=== PATIENT | female | born 1965 | race Caucasian/White ===

== ENCOUNTER → 2018-12-19 | Outpatient (CLI) | payer OTHER ==
[2018-12-19 11:33] LABS: BASOPHIL % 0.5 % (0-2); PLATELET COUNT 282 x10^3mcL (130-400); RED CELL DISTRIBUTION WIDTH 13.5 % (11.5-14.5)
[2018-12-19 11:54] LABS: ALBUMIN 3.8 g/dL (3.4-5.0); ALKALINE PHOSPHATASE 76 U/L (46-116); ALT/SGPT 21 U/L (14-59); AST/SGOT 16 U/L (15-37); BILIRUBIN DIRECT 0.09 mg/dL (0.0-0.2); BILIRUBIN TOTAL 0.44 mg/dL (0.20-1.00); CALCIUM 9.1 mg/dL (8.5-10.1); CARBON DIOXIDE 27.1 mmol/L (21-32); CHLORIDE SERUM 105 mmol/L (98-107); GFR1 > 60 mL/min; GLUCOSE SERUM 89 mg/dL (74-106); POTASSIUM SERUM 4.3 mmol/L (3.5-5.1); SODIUM SERUM 142 mmol/L (136-145); TOTAL PROTEIN, SERUM 8.1 g/dL (6.4-8.2); TRIGLYCERIDES 48 mg/dL (<150)
[2018-12-19 11:56] LABS: CHOLESTEROL 240 mg/dL (<200); CHOLESTEROL/HDL RATIO 3.2; HDL CHOLESTEROL 74 mg/dL (40-60)
== END | disposition home or self-care (01) ==
LOC: LB 09:57
PROVIDERS: Internal Medicine
DX: Z00.00 Encounter for general adult medical examination without abnormal findings (principal)
CPT/HCPCS: 77067

== ENCOUNTER → 2019-01-26 | Outpatient (CLI) | payer OTHER | END | disposition home or self-care (01) | LOC: RD 14:59 | DX: M16.0 Bilateral primary osteoarthritis of hip (principal) ==

== ENCOUNTER → 2019-03-06 | Outpatient (CLI) | payer OTHER ==
[~2019-03-06] MED LIST: ADV100/50; ALBUTEROL0.63 MG/3; HYDROXYZINE10 M1 PO; PROTONIX40 MG PO; ZYRTEC10 MG PO
== END | disposition home or self-care (01) ==
LOC: MI 03-05 12:30
PROC: BQ31ZZZ Magnetic Resonance Imaging (MRI) of Left Hip (ICD-10-PCS; principal; 2019-03-06)
DX: M25.552 Pain in left hip (principal); M16.12 Unilateral primary osteoarthritis, left hip

== ENCOUNTER 2019-03-30 11:50 | Emergency (ER) | payer OTHER ==
[~2019-03-30] VITALS: Ht 177.8 cm; Wt 104.3 kg
[2019-03-30 11:52] VITALS: BP 135/89; Ht 177.8 cm; Wt 104.3 kg
== END 2019-03-30 12:23 | disposition home or self-care (01) ==
LOC: ED 11:50
DX: L50.9 Urticaria, unspecified (principal); J45.909 Unspecified asthma, uncomplicated; K21.9 Gastro-esophageal reflux disease without esophagitis
CPT/HCPCS: J2930

== ENCOUNTER 2019-04-11 09:32 | Emergency (ER) | payer OTHER ==
[~2019-04-11] VITALS: Ht 177.8 cm; Wt 121.6 kg
[2019-04-11 09:36] VITALS: Ht 177.8 cm; Wt 121.6 kg
[2019-04-11 11:59] VITALS: BP 148/90
== END 2019-04-11 11:59 | disposition home or self-care (01) ==
LOC: ED 09:32
DX: T78.3XXA Angioneurotic edema, initial encounter (principal); J45.909 Unspecified asthma, uncomplicated; Y92.89 Other specified places as the place of occurrence of the external cause
CPT/HCPCS: J7512

== ENCOUNTER → 2019-05-18 | Outpatient (CLI) | payer OTHER ==
[2019-05-18 17:03] LABS: microscopic required? NO
[2019-05-18 17:18] LABS: BASOPHIL % 0.8 % (0-2); PLATELET COUNT 322 x10^3mcL (130-400); RED CELL DISTRIBUTION WIDTH 13.9 % (11.5-14.5)
[2019-05-18 17:26] LABS: UA SPECIFIC GRAVITY <=1.005 (1.005-1.035); urine erythrocyte NEGATIVE (NEGATIVE)
[2019-05-18 17:30] LABS: ALBUMIN 3.8 g/dL (3.4-5.0); ALKALINE PHOSPHATASE 68 U/L (46-116); ALT/SGPT 26 U/L (14-59); AST/SGOT 17 U/L (15-37); BILIRUBIN TOTAL 0.3 mg/dL (0.20-1.00); CALCIUM 9.3 mg/dL (8.5-10.1); CARBON DIOXIDE 29.5 mmol/L (21-32); CHLORIDE SERUM 105 mmol/L (98-107); CREATININE SERUM 0.9 mg/dL (0.6-1.0); GFR1 > 60 mL/min; GLUCOSE SERUM 94 mg/dL (74-106); POTASSIUM SERUM 3.7 mmol/L (3.5-5.1); SODIUM SERUM 143 mmol/L (136-145); T4(THYROXINE) 8.5 ug/dL (4.7-13.3); TOTAL PROTEIN, SERUM 7.5 g/dL (6.4-8.2)
[2019-05-18 18:37] LABS: ERYTHROCYTE SED RATE 40 mm/hr (0-30)
[2019-05-20 09:10] LABS: RHEUMATOID ARTHRITIS FACTOR 13.2 IU/mL (0.0-13.9)
== END | disposition home or self-care (01) ==
LOC: LB 16:17
PROVIDERS: Internal Medicine
DX: Z00.00 Encounter for general adult medical examination without abnormal findings (principal)
CPT/HCPCS: 86431

== ENCOUNTER → 2019-07-19 | Outpatient (CLI) | payer OTHER | END | disposition home or self-care (01) | LOC: LB 15:03 | DX: T78.3XXD Angioneurotic edema, subsequent encounter (principal); I10 Essential (primary) hypertension; L50.1 Idiopathic urticaria | CPT/HCPCS: 86376; 86431 ==

== ENCOUNTER → 2019-07-25 | Outpatient (CLI) | payer OTHER | END | disposition home or self-care (01) | LOC: LB 14:23 | DX: T78.3XXD Angioneurotic edema, subsequent encounter (principal); L50.1 Idiopathic urticaria ==

== ENCOUNTER → 2019-07-26 | Outpatient (CLI) | payer OTHER | END | disposition home or self-care (01) | LOC: RD 16:23 | DX: N39.0 Urinary tract infection, site not specified (principal); R05 Cough ==

== ENCOUNTER 2019-08-14 12:23 | Inpatient (IN) | payer OTHER ==
[~2019-08-14] VITALS: Ht 177.8 cm; Wt 104.3 kg
[2019-08-14 12:25] VITALS: Ht 177.8 cm; Wt 104.3 kg
--- NOTE | 2019-08-14 12:30 | NUR ---
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
--- NOTE | 2019-08-14 12:34 | NUR ---
PT STS NO CHANCE OF BEING , PT PROVIDING VERBAL CONSENT D/T "TOO MUCH PAIN TO WALK OR SIT FOR TOO LONG" AND UNDERSTANDS RISKS OF +HCG AND TORADOL ADMIN.
--- NOTE | 2019-08-14 13:04 | NUR ---
MD CELAYA AT BEDSIDE DISCUSSING PLAN OF CARE
--- NOTE | 2019-08-14 13:46 | NUR ---
PT MEDICATED BY SHEA RN, PT DENIES PAIN AT THIS TIME, PT NOTED TO BE SMILING IN POSITION OF COMFORT STATING ''I FEEL A LOT BETTER''
--- NOTE | 2019-08-14 13:47 | NUR ---
PT NSR ON CM, RESPS E/U, VSS, SKIN PINK DRY AND WARM, PT RESTING IN POSITION OF COMFORT, WILL CONTINUE TO MONITOR
--- NOTE | 2019-08-14 14:30 | NUR ---
PT STS HAS RIDE HOME FROM HER FRIEND VIA PRIVATE AUTO
--- NOTE | 2019-08-14 14:41 | NUR ---
PT MEDICATED PER EMAR AND MD ORDER, RESPS E/U, NSR ON CM, VSS
--- NOTE | 2019-08-14 15:46 | NUR ---
FACIAL GRIMACING NOTED WHEN PT ATTEMPTED TO GET OUT OF BED
--- NOTE | 2019-08-14 15:47 | NUR ---
PT STS "HURTS TOO MUCH TO WALK AND GET UP I CAN BARELY MOVE" MD CELAYA MADE AWARE
--- NOTE | 2019-08-14 15:49 | NUR ---
FRIEND AT BEDSIDE
[2019-08-14] MEDS ORDERED: ALBUTEROL0.63 MG/3 (16:02)
[2019-08-14] MEDS ORDERED: ZYRTEC10 MG PO (16:02)
[2019-08-14] MEDS ORDERED: HYDROXYZINE10 M1 PO (16:03)
[2019-08-14] MEDS ORDERED: ADV100/50 (16:03)
[2019-08-14] MEDS ORDERED: PROTONIX40 MG PO (16:04)
--- NOTE | 2019-08-14 16:05 | NUR ---
PT WHEELCHAIRED TO RESTROOM WITH ASSISTANCE FROM JESSICA ROJAS
[2019-08-14 16:08] LABS: BASOPHIL % 1.1 % (0-2); PLATELET COUNT 298 x10^3mcL (130-400); RED CELL DISTRIBUTION WIDTH 13.4 % (11.5-14.5)
--- NOTE | 2019-08-14 16:09 | NUR ---
PT BACK FROM RESTROOM VIA WHEELCHAIR IN STABLE CONDIITON, VSS, NSR ON CM, IN NAD AT THIS TIME RESTING IN POSITION OF COMFORT
[2019-08-14 16:14] LABS: CALCIUM 8.8 mg/dL (8.5-10.1); CARBON DIOXIDE 24.7 mmol/L (21-32); CHLORIDE SERUM 106 mmol/L (98-107); GFR1 > 60 mL/min; GLUCOSE SERUM 90 mg/dL (74-106); POTASSIUM SERUM 4.2 mmol/L (3.5-5.1); SODIUM SERUM 140 mmol/L (136-145)
--- NOTE | 2019-08-14 16:30 | NUR ---
PT STS 10/10 PAIN "PAIN WITH MOVEMENT I FEEL SPASMS" MD CELAYA MADE AWARE
--- NOTE | 2019-08-14 16:54 | NUR ---
PT MEDICATED PER MD ORDER AND EMAR, RESPS E/U, VSS, NSR ON CM, FRIEND AT BEDSIDE
--- NOTE | 2019-08-14 17:05 | NUR ---
REPORT GIVEN TO JEREMIE ROJAS WHO IS TO RESUME CARE OF PT
--- NOTE | 2019-08-14 17:22 | NUR ---
RECEIVED PT VIA GURNEY FROM E/D, ACCOMPANIED BY TRANSPORTER. PT A/A/O X 4, CALM, COOPERATIVE; WEARS GLASSES (W/ PT). DENIES CHEST PAIN OR DISCOMFORT AT THIS TIME. SCD BY BEDSIDE. NO ACUTE RESPIRATORY DISTRESS NOTED. UNABLE TO AMBULATE 2/2 LOWER BACK PAIN (CURRENTLY 4/10 INTERMITTENT SHARP PAIN, EXACERBATED BY MOVEMENT AND WALKING (RISES TO 8/10), RELIEVED BY PAIN MEDICATION AND REST), FALL RISK PROTOCOL IN PLACE. IV SITE RH 20G, CDI. ORIENTED PT TO ROOM, BED CONTROLS, CALL LIGHT SYSTEM. SIDE RAILS UP X 2, BED IN LOW POSITION. WILL ENDORSE TO BOB CHAO.
[2019-08-14 17:56] VITALS: BP 120/69
--- NOTE | 2019-08-14 18:30 | NUR ---
PATIENT C/O 8/10 BACK PAIN AT THIS TIME. PATIENT MEDICATED WITH MORPHINE IVP PRN AT THIS TIME. NO APPARENT ADVERSE EFFECTS NOTED. ALL NEEDS ATTENDED TO. WILL CONTINUE TO MONITOR
--- NOTE | 2019-08-14 18:49 | NUR ---
PATIENT RESTING COMFORTABLY IN BED AT THIS TIME. NO APPARENT DISTRESS OR DISCOMFORT NOTED. IV PATENT AND INTACT TO RIGHT HAND. ALL QUESTIONS AND CONCERNS ADDRESSED. ALL NEEDS ATTENDED TO. SAFETY PRECAUTIONS MAINTAINED. WILL ENDORSE ALL CARE TO SOFTWARE SYSTEMS ARCHITECT NURSE
--- NOTE | 2019-08-14 19:30 | NUR ---
RECEIVED PT IN BED RESTING QUIETLY. SHE IS ALERT,ORIENTED X4. NO SOB ON ROOM AIR. PT STATED BACK PAIN IS AT 5/10 AND TOLERABLE AT THIS TIME. ALSO SAID SHE FEELS OKAY IF SHE DOES NOT MOVE. PER PT, PAIN RADIATES TO HER LT LEG. PT ADVISED TO CALL FOR ASSISTANCE WHEN GETTING OOB. W/ HL TO RT HAND. CALL LIGHT W/IN REACH.
--- NOTE | 2019-08-14 22:28 | NUR ---
PT C/O BACK PAIN 05/16. MORPHINE SULFATE 1 MG IV GIVEN.
[2019-08-14 22:30] VITALS: BP 135/94
--- NOTE | 2019-08-15 04:54 | NUR ---
PT C/O BACK PAIN 05/16. MORPHINE SULFATE 1 MG IV GIVEN.
--- NOTE | 2019-08-15 05:37 | NUR ---
PT SLEPT THROUGH THE NIGHT. SHE WAS MEDICATED FOR PAIN X2 W/ MOD RELIEF. PT WAS ABLE TO AMBULATE TO THE RESTROOM USING A WALKER. ALL NEEDS ATTENDED TO.
[2019-08-15 06:17] VITALS: BP 118/68
--- NOTE | 2019-08-15 07:25 | NUR ---
RECEIVED PATIENT AWAKE/ALERT IN BED NO DISTRESS NOTED, REPORT STILL UNABLE TO MOVE LOWER EXTREMITIES, DENIES NUMBNESS. IV TO RH INTACT AND SL NOTED. POC EXPLAINED AND PAIN MANAGE, CALL LIGHT WITHIN REACH.
--- NOTE | 2019-08-15 08:57 | NUR ---
PATIENT RESTING IN BED ADMINISTERED FLEXERIL 10MG PO AND TOLERATED. ASSISTING PATIENT TO BATHROOM WALKING SLOW BUT TOLERATED. PAIN MOSTLY ON THE LT GROIN RADIATED DOWN TO LEG. ASSIST BACK TO BED, CALL LIGHT WITHIN REACH.
[2019-08-15 10:00] VITALS: BP 115/75
--- NOTE | 2019-08-15 11:24 | NUR ---
PATIENT C/O PAIN AFTER WORKING WITH PT, NORCO 1TAB PO GIVEN FOR 8/10 LOWER BACK PAIN. NEEDS MET. CALL LIGHT WITHIN REACH.
--- NOTE | 2019-08-15 12:19 | NUR ---
PATIENT RESTING IN BED STATED PAIN IS A LITTLE BETTER, 02/14. PATIENT SAID DR. MCKINNON CAME TO SEE AND SUGGEST MRI LUMBAR. NEED MET. CALL LIGHT WITHIN REACH.
--- NOTE | 2019-08-15 12:57 | NUR ---
PATIENT RESTING IN BED PAIN IS 5/10, SCHEDULE FLEXERIL PO GIVEN. NEEDS MET. PATIENT DID NOT KNOW DR. MCKINNON ORDER CONSENT FOR LT HIP SURGERY, PATIENT FEEL IS NOT APPROPRIATE AT THIS TIME. WILL CALL DR. MCKINNON TO TALK TO PATIENT. CALL LIGHT WITHIN REACH.
--- NOTE | 2019-08-15 13:09 | NUR ---
CHAD PAULINO CALL DR. MCKINNON AND CLARIFIED, ORDERS IS NOT FOR THIS TIME. PER DR. MCKINNON CANCEL ORDERS.
--- NOTE | 2019-08-15 14:23 | NUR ---
CALL DR. MCKINNON CLARIFIED MEDROL 4MG PO AND HEPARIN 5000 UNITS SQ IS ORDER FOR THIS PATIENT.
--- NOTE | 2019-08-15 14:42 | NUR ---
MEDROL 4MG PO ADMINISTERED ORDERED, PATIENT RESTING IN BED COMFORTABLY. NO COMPLAIN. CONT TO MONITOR.
[2019-08-15 16:21] VITALS: BP 121/78
--- NOTE | 2019-08-15 16:30 | NUR ---
CALLED AND SPOKE TO AND VERIFIED WITH HIM OF HIS RECOMMENDATION OF MRI LSPINE WITHOUT CONTRAST, SAYS RELAY IT TO (ATTENDING) AND IF OKAY TO ORDER THE MRI LSPINE TO R/O DISC HERNIATION. CALLED AND SPOKE TO AND MADE HIM AWARE OF ABOVE. CALLED AND SPOKE TO LYNNETTE(PHOTOGRAPHIC EQUIPMENT TECHNICIAN) TO GET ADMINISTRATIVE APPROVAL FOR MRI LSPINE WITHOUT CONTRAST, LYNNETTE SAYS WILL NOTIFY ME ONCE APPROVED. ONEIDA ROJAS ASSIGNED TO THIS PT MADE AWARE OF ABOVE.
--- NOTE | 2019-08-15 16:47 | NUR ---
RECEIVED A CALL FROM LYNNETTE(BUILDING DISMANTLER) AND SAYS THAT MRI ADMINISTRATIVE APPROVAL WAS OBTAINED AND APPROVED BY . CALLED AND SPOKE TO AND UPDATED HIM THAT MRI LSPINE APPROVED. RECEIVED A NEW ORDER TO CANCEL XRAY OF LSPINE ORDERED FOR TOMORROW. ONEIDA ROJAS ASSIGNED TO THIS PT MADE AWARE OF ABOVE. PT WAS UPDATED OF ABOVE PLAN.
--- NOTE | 2019-08-15 17:02 | NUR ---
MEDICATED FOR PAIN 8/10 LOWER BACK WITH NORCO 1 TAB PO AND FLEXERIL 10MG PO. MRI QUESTIONAIRE COMPLETED. NEEDS MET. PATIENT RESTING IN BED WITH VISITOR AT BEDSIDE. CONT TO MONITOR.
--- NOTE | 2019-08-15 17:21 | NUR ---
PER GERMAN INFORM NURSE TECH WILL BE AVAILABLE FOR MRI TOMORROW AT 10 AM. CHAD KAUFFMAN.
--- NOTE | 2019-08-15 17:57 | NUR ---
PATIENT SAT UP IN BED REPORT PAIN IS RELIEVED, 0/10 AND WAS MADE AWARE MRI L SPINE SCHEDULE TOMORROW AROUND 10:00 AM. NEEDS MET. CALL LIGHT WITHIN REACH.
--- NOTE | 2019-08-15 19:40 | NUR ---
RECEIVED REPORT FROM BOB MOHAMUD. AAOX4. PT DENIES ANY HEADACHE OR DIZZINESS AT THIS TIME. PT IS MED-SURG. PT DENIES ANY S/S OF CHEST PAIN OR DISCOMFORT AT THIS TIME. PULSES ARE PALPABLE AND CAP REFILL IS <3. PT IS ON HEPARIN SQ. PT LUNGS CTA AND 97% O2 SAT ON RA. PT BREATHING IS EVEN AND UNLABORED. PT IS OBESE AND ABD IS SOFT AND ROUND. NORMOACTIVE BOWEL SOUNDS X4. LBM WAS 08/14/19, FORMED. PT VOIDS FREELY IN BATHROOM. PT HAS GENERALIZED WEAKNESS, BUT ABLE TO MOVE FROM BED TO CHAIR. PT SKIN INTACT AND WNL. PT IV RH 22G IS PATENT, SALINE LOCKED, AND WNL. PT CALM AND COOPERATIVE WITH NURSING CARE. CALL LIGHT WITHIN REACH. BED IN LOWEST POSITION. WILL CONTINUE TO MONITOR.
--- NOTE | 2019-08-15 20:18 | NUR ---
PT OFF THE UNIT TO MRI.
--- NOTE | 2019-08-15 20:50 | NUR ---
PT IS BACK FROM MRI.
[2019-08-15 21:03] VITALS: BP 134/85
[2019-08-16 06:03] VITALS: BP 112/76
--- NOTE | 2019-08-16 06:31 | NUR ---
PT COMPLIANT WITH NURSING CARE THROUGHOUT THE SHIFT. PT SLEPT MAJORITY OF THE NIGHT, BUT EASILY AROUSABLE. ADMINISTERED MORPHINE 1X PRIOR TO MRI AND NORCO 1X FOR BACK PAIN. IV SITE WNL. CALL LIGHT WITHIN REACH. WILL CONTINUE TO MONITOR.
--- NOTE | 2019-08-16 07:22 | NUR ---
ENDORSED CARE TO RN LUKE. ALL QUESTIONS AND CONCERNS ADDRESSED.
--- NOTE | 2019-08-16 07:25 | NUR ---
RECEIVED PT FROM MIKE RN. PT AA/OX4, LAYING IN BED. DENIES BACK PAIN AT THIS TIME. NO S/S OF ACUTE DISTRESS. NO SOB ON ROOM AIR. NO CHEST PAIN. MED SURG. FALL PREC IN PLACE. INSTRUCTED TO USE CALL LIGHT TO CALL FOR ASSISTANCE PRN/BEFORE GETTING OOB. IV WNL TO LFA, NO REDNESS, NO SWELLING, NO INFILTRATION. PATENT AND FLUSHES WELL. SALINE LOCKED. BED IN LOW POSITION. CALL LIGHT WITHIN REACH. WILL CONT. TO MONITOR.
[2019-08-16 09:38] VITALS: BP 140/94
--- NOTE | 2019-08-16 12:48 | NUR ---
CALLED AND SPOKE TO AND MADE HIM AWARE OF MRI LSPINE RESULT IN DETAILED REPORT. NEW ORDER RECEIVED FOR LUMBAR SUPPORT/ABDL BINDER. SAYS HE WILL COME TO SEE THE PT THIS AFTERNOON. MADE INO AUGUSTIN AWARE OF PHYSICAL THERAPY RECOMMENDATION OF HOME HEALTH P.T. AND SAYS NO NEED FOR IT AT THIS TIME. LUKE RN ASSIGNED TO THIS PT MADE AWARE OF ABOVE.
--- NOTE | 2019-08-16 12:53 | NUR ---
PT LAYING IN BED. AA/OX4, REPORTS PAIN TO BILATERAL BACK 3/10 CONTINUOUS, WORSE WITH ACTIVITY/WHILE SITTING STRAIGHT UP IN BED. REPORTS TOLERABLE AT THIS TIME. NO S/S OF ACUTE DISTRESS. NO SOB ON ROOM AIR. NO N/V. NO CHEST PAIN. CALM/COOPERATIVE. BED IN LOW POSITION. CALL LIGHT WITHIN REACH. WILL CONT. TO MONITOR.
--- NOTE | 2019-08-16 13:14 | NUR ---
ABDOMINAL BINDER IN PLACE FOR PT LUMBAR SUPPORT PER DR. MCKINNON ORDER. PT AMBULATORY TO CHAIR. TOLERATED ACTIVITY WELL. NO S/S OF ACUTE DISTRESS. PT SITTING IN CHAIR AT SIDE OF BED. CALL LIGHT WITHIN REACH. WILL CONT. TO MONITOR.
--- NOTE | 2019-08-16 15:29 | NUR ---
PHYSICAL THERAPY DAILY NOTES CO-SIGN All documentation done by the Consulting Sme for 08/16/19 has been reviewed. I agree with the documentation. Reviewed/Co-Signed by: Rosemarie Duran PT Documentation Done by:KEVYN TRINH PTA
--- NOTE | 2019-08-16 15:51 | NUR ---
CALLED AND SPOKE TO AND UPDATED HIM OF 'S CONVERSATION WITH THE PT ABOUT HER RESULT AND THE PLAN OF CARE. SAYS PT IS OKAY TO D/C HOME TOMORROW IF OKAY WITH , MADE AWARE. LUKE ROJAS ASSIGNED TO THIS PT AWARE OF ABOVE.
[2019-08-16 16:48] VITALS: BP 124/77
--- NOTE | 2019-08-16 18:46 | NUR ---
PT LAYING IN BED. AA/OX4. DENIES PAIN AT THIS TIME. NO SOB ON ROOM AIR. ABDOMINAL BINDER IN PLACE TO LOWER BACK PER DR. MCKINNON ORDER. NO S/S OF ACUTE DISTRESS. CALM/COOPERATIVE. BED IN LOW POSITION. CALL LIGHT WITHIN REACH. WILL ENDORSE TO ONCOMING SHIFT.
--- NOTE | 2019-08-16 19:35 | NUR ---
RECEIVED PT FROM DAY SHIFT RN. PT AAOX4 DENIES STEEL/DIZZINESS. BREATHING EVEN AND UNLABORED ON RA WITH NO SOB NOTED. MED SURG PT DENIES CHEST PAIN/PRESSURE. ABD SOFT/DISTENDED ACTIVE BOWEL SOUNDS. DENIES ABD PAIN/N/V. IV LFA PATENT. PT DENIES ANY PAIN/DISTRESS. CALL BUTTON WITHIN REACH. SAFETY PRECAUTIONS IN PLACE. WILL CONTINUE TO MONITOR.
[2019-08-16 20:12] VITALS: BP 109/80
--- NOTE | 2019-08-17 00:30 | NUR ---
PT RESTING. BREATHING EVEN AND UNLABORED. NO SOB NOTED. CALL BUTTON WITHIN REACH. SAFETY PRECAUTIONS IN PLACE. WILL CONTINUE TO MONITOR.
[2019-08-17 05:30] VITALS: BP 109/71
--- NOTE | 2019-08-17 05:48 | NUR ---
PT SLEPT MOST OF THE NIGHT WITH NO SIGNS OF DISTRESS. IV PATENT, SL. PT DENIED ANY PAIN THROUGHOUT THE NIGHT. NO SIGNS OF DISTRESS NOTED. MEDICATED PER EMAR. CALL BUTTON WITHIN REACH. SAFETY PRECAUTIONS IN PLACE. WILL CONTINUE TO MONITOR AND ENDORSE CARE TO DAY SHIFT RN.
--- NOTE | 2019-08-17 06:02 | NUR ---
PT REPORTED HAVING BACK PAIN 05/16. MEDICATED PER EMAR. CALL BUTTON WITHIN REACH. SAFETY PRECAUTIONS IN PLACE. WILL CONTINUE TO MONITOR.
--- NOTE | 2019-08-17 07:20 | NUR ---
RECEIVED PT FROM RECREATION ATTENDANT. PT AWAKE, ALERT A/OX4. PT ON ROOM AIR WITH NO RESP DISTRESS NOTED. IV ACCESS LFA, CDI SALINE LOCKED. PERIPHERAL PULSES PALPABLE, NO EDEMA NOTED. PT REPORTS NO ISSUES WITH ELIMINATION AT THIS TIME. PT AMBULATES WITH ASSISTANCE. PT NOTED TO HAVE GENERALIZED WEAKNESS. PT REPORTS PAIN 3/10 AT THIS TIME, GETS WORSE WITH AMBULATION. SAFETY MEASURES IN PLACE, BED LOW AND LOCKED. CALL LIGHT WITHIN REACH.
--- NOTE | 2019-08-17 07:23 | NUR ---
PT RESTING, NO SIGNS OF DISTRESS NOTED. CALL BUTTON WITHIN REACH. SAFETY PRECAUTIONS IN PLACE. WILL CONTINUE TO MONITOR.
[2019-08-17 08:54] VITALS: BP 125/77
--- NOTE | 2019-08-17 09:02 | NUR ---
DUE MEDS ADMINISTERED ORDERED. PT TOLERATED WELL. PT REPORTS PAIN TOLERABLE AT THIS TIME. SAFETY MAINTAINED.
[2019-08-17 10:51] VITALS: BP 125/77
--- NOTE | 2019-08-17 11:10 | NUR ---
DISCHARGE INSTRUCTIONS/EDUCATION PROVIDED TO PATIENT. PT TO FOLLOW UP WITH APPT PROVIDED. PT VERBALIZES UNDERSTANDING. IV ACCESS REMOVED WITH CATHETER INTACT. NO REDNESS OR SWELLING NOTED. PT TAKEN BY WHEELCHAIR TO PRIVATE AUTO FOR DISCHARGE.
--- NOTE | 2019-08-17 13:33 | NUR ---
PHYSICAL THERAPY DAILY NOTES CO-SIGN All documentation done by the Pump Erector for 08/17/19 has been reviewed. I agree with the documentation. Reviewed/Co-Signed by: Rosemarie Duran PT Documentation Done by: KEVYN TRINH PTA
== END 2019-08-17 11:55 | disposition home or self-care (01) | DRG 552 ==
LOC: ED 12:23 → MU 16:20
PROVIDERS: Emergency Medicine; ADMIT Internal Medicine
DX: M51.16 Intervertebral disc disorders with radiculopathy, lumbar region (principal); M47.26 Other spondylosis with radiculopathy, lumbar region; J45.909 Unspecified asthma, uncomplicated; S39.012A Strain of muscle, fascia and tendon of lower back, initial encounter; X58.XXXA Exposure to other specified factors, initial encounter; G89.29 Other chronic pain; M60.9 Myositis, unspecified; Y93.89 Activity, other specified; Z68.32 Body mass index [BMI] 32.0-32.9, adult; Y92.89 Other specified places as the place of occurrence of the external cause; Y99.8 Other external cause status
CPT/HCPCS: 97116-GP; 97530-GP; G0378; J1644; J1885; J2060; J2270; J2405; J3010; J3490; J7509

== ENCOUNTER → 2020-01-03 | Outpatient (CLI) | payer OTHER | END | disposition home or self-care (01) | LOC: LB 15:15 | DX: J30.1 Allergic rhinitis due to pollen (principal); J45.40 Moderate persistent asthma, uncomplicated; M06.9 Rheumatoid arthritis, unspecified | CPT/HCPCS: 82785; 86431 ==